=== PATIENT | female | born 1970 ===

== ENCOUNTER 2016-11-08 09:41 | Day surgery (SDC) | payer SELFPAY ==
[2016-08-05 12:35] VITALS: BMI 30.4
[2016-11-08] MEDS ORDERED: Lactated Ringer's 500 ML IV ONE (11:22)
[2016-11-08 11:34] VITALS: O2SAT 99
[2016-11-08] MEDS ORDERED: Propofol 10 mg/ml Inj (20 ML) ONE (12:19)
[2016-11-08 12:45] VITALS: TEMP 97
[2016-11-08 12:54] VITALS: BP 107/67; PULSE 64; RESP 16
== END 2016-11-08 13:03 | disposition home or self-care (01) ==
LOC: H.ENDO 09:41
PROVIDERS: ATTEND Internal Medicine Gastroenterology
DX: K25.7 Chronic gastric ulcer without hemorrhage or perforation (principal); K30 Functional dyspepsia; K29.70 Gastritis, unspecified, without bleeding; K31.9 Disease of stomach and duodenum, unspecified; B96.81 Helicobacter pylori [H. pylori] as the cause of diseases classified elsewhere; I10 Essential (primary) hypertension

== ENCOUNTER 2017-06-03 13:39 | Emergency (ER) | payer SELFPAY ==
[2017-06-03 13:39] VITALS: BMI 30.4
[2017-06-03 13:50] VITALS: O2SAT 98
--- NOTE | 2017-06-03 14:33 | ED PDOC ---
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 Pt states she noticed rash to area. Pt also c.o headache at night. Pt medicating with tylenol and motrin with no relief. 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 no n/t/w. using HC cream but sx worsened Past Medical History Vital Signs: Last Vital Signs Temp 98.0 F 06/03/17 13:47 Pulse 87 06/03/17 13:47 Resp 16 06/03/17 13:47 BP 150/79 06/03/17 13:47 Pulse Ox 98 06/03/17 13:47 - Medical History PMH: Hypercholesterolemia, Rheumatoid Arthritis Denies: Chronic Kidney Disease - Family History Family History: States: Unknown Family Hx - Living Arrangements Living Arrangements: With Family - Social History Current smoker - smoking cessation education provided: No - Immunization History Hx Tetanus Toxoid Vaccination: No Hx Influenza Vaccination: No Hx Pneumococcal Vaccination: No - Home Medications Home Medications: Ambulatory Orders Medication Instructions Recorded Nystatin [Mycostatin Cream] 15 applic EXT DAILY #1 tube 06/03/17 - Allergies Allergies/Adverse Reactions: Allergies Allergy/AdvReac Type Severity Reaction Status Date / Time No Known Allergies Allergy Verified 11/08/16 11:20 Physical Exam - Reviewed Nursing Documentation Reviewed: Yes Vital Signs Reviewed: Yes - Physical Exam Appears: Positive for: Well, No Acute Distress Head Exam: Positive for: ATRAUMATIC, NORMAL INSPECTION, NORMOCEPHALIC Eye Exam: Positive for: Normal appearance, EOMI, PERRL Neck: Positive for: Normal, Painless ROM, Supple Cardiovascular/Chest: Positive for: Regular Rate, Rhythm, Chest Non Tender. Negative for: Edema, Gallop, Murmur, Bradycardia, Tachycardia Respiratory: Positive for: Normal Breath Sounds. Negative for: Decreased Breath Sounds, Accessory Muscle Use, Crackles, Rales, Rhonchi, Stridor, Wheezing Gastrointestinal/Abdominal: Positive for: Normal Exam, Bowel Sounds, Soft. 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 Negative for: L CVA Tenderness, R CVA Tenderness Neurologic/Psych: Positive for: Alert, head and neck surgeon II-XII, Oriented. Negative for: Motor/Sensory Deficits - ECG O2 Sat by Pulse Oximetry: 98 Pulse Ox Interpretation: Normal - Progress ED Course And Treament: pt craven are chronic and unchanged nml neuo exam steady gait, pt states main reason to be eval is for pelvic rash advise cream and close f/u in med clinic. Re-evaluation Time: 14:33 Condition: Improved Disposition - Clinical Impression Clinical Impression: Headache, Karen infection of genital region - Patient ED Disposition Is Patient to be Admitted: No Counseled Patient/Family Regarding: Studies Performed, Diagnosis, Need For Followup, Rx Given - Disposition Referrals: [facility] [Outside] (2 to 3 days) Disposition: Routine/Home Disposition Time: 14:20 Condition: GOOD Prescriptions: Nystatin [Mycostatin Cream] 15 applic EXT DAILY #1 tube Instructions: Vulvovaginal Candidiasis (ED) Print Language: FRISIAN
[2017-06-03 14:34] LABS: RBC URINE 12 /hpf (0-3); URINE BACTERIA RARE (<OCC); URINE BILIRUBIN NEGATIVE (NEGATIVE); URINE BLOOD NEGATIVE (NEGATIVE); URINE COLOR YELLOW (YELLOW); URINE GLUCOSE (UA) >=500 mg/dL (Normal); URINE KETONE NEGATIVE (NEGATIVE); URINE LEUKOCYTE ESTERASE MOD Leu/uL (Negative); URINE PROTEIN 30 mg/dL (NEGATIVE); URINE UROBILINOGEN 0.2-1.0 mg/dL (0.2-1.0); WBC URINE 4 /hpf (0-5)
[2017-06-03 14:46] VITALS: BP 120/78; PULSE 78; RESP 17; TEMP 96.7
== END 2017-06-03 14:46 | disposition home or self-care (01) ==
LOC: H.ER 13:39
DX: R51 Headache (principal); F12.10 Cannabis abuse, uncomplicated; E78.00 Pure hypercholesterolemia, unspecified; M06.9 Rheumatoid arthritis, unspecified